=== PATIENT | male | born 1990 | race Caucasian/White ===

== ENCOUNTER 2019-07-09 01:13 | Inpatient (IN) ==
[~2019-07-09 01:13] MED LIST: NARCAN ONE; NS 1,000 ML ONE
[2019-07-09] MEDS ORDERED: NS 1,000 ML IV ONE ×4 (01:16→02:56)
[2019-07-09] MEDS ORDERED: NARCAN IV ONE (01:16)
[2019-07-09] MEDS ORDERED: QUELICIN ONE (01:36)
[2019-07-09] MEDS ORDERED: NS 1,000 ML ONE (01:36)
[2019-07-09] MEDS ORDERED: KETAMINE ONE (01:40)
[2019-07-09 01:41] LABS: UR AMPHETAMINES QUAL PRESUMPTIVE POSITIVE (NONE DETECT); UR BARBITUATES QUAL NONE DETECTED (NONE DETECT); UR BENZODIAZEPIN QUAL NONE DETECTED (NONE DETECT); UR CANNABINOIDS QUAL NONE DETECTED (NONE DETECT); UR COCAINE QUAL NONE DETECTED (NONE DETECT); UR METHADONE QUAL NONE DETECTED (NONE DETECT); UR METHAMPHETAMINE QUAL PRESUMPTIVE POSITIVE (NONE DETECT); UR OPIATES QUAL NONE DETECTED (NONE DETECT); UR OXYCODONE QUAL NONE DETECTED (NONE DETECT); UR PCP QUAL NONE DETECTED (NONE DETECT); UR PROPOXYPHENE QUAL NONE DETECTED (NONE DETECT); UR TCA QUAL NONE DETECTED (NONE DETECT)
[2019-07-09 01:43] LABS: BASO# 0.03 X1000 (0.0-0.2); BASO% 0.3 % (0.0-0.8); EOS# 0.15 X1000 (0.0-0.7); EOS% 1.7 % (0.0-10.0); HEMATOCRIT 46.3 % (42.0-52.0); HEMOGLOBIN 15.6 g/dL (14.0-18.0); IMM GRAN# 0.01 X1000 (0.0-0.04); IMM GRAN% 0.1 % (0.0-0.5); LYMPH# 4.76 X1000 (1.2-3.4); LYMPH% 54.9 % (20.5-51.1); MCH 30.4 PG (27-31); MCHC 33.7 g/dL (33-37); MCV 90.3 FL (81-99); MONO# 0.82 X1000 (0.11-0.59); MONO% 9.5 % (1.7-9.3); MPV 9.7 FL (7.4-10.4); NEUT% 33.5 % (42.2-75.2); PLT 290 X1000 (130-400); RBC 5.13 XMIL (4.7-6.1); RDW 12.5 % (11.5-14.5); WBC 8.67 X1000 (4.8-10.8)
[2019-07-09] MEDS ORDERED: DIPRIVAN 1% 1,000 MG/100 ML BOTTLE ONE (01:47)
[2019-07-09] MEDS ORDERED: AMIDATE IV ONE (01:53)
[2019-07-09] MEDS ORDERED: QUELICIN IV ONE (02:02)
[2019-07-09] MEDS: DIPRIVAN 1% 1,000 MG/100 ML BOTTLE IV SCH ×9 (02:04→22:19)
[2019-07-09 02:12] LABS: ACETAMINOPHEN < 1.2 ug/mL (10-30); AGAP 12; ALBUMIN 4.9 g/dL (3.5-5.0); ALKALINE PHOSPHATASE 77 U/L (32-122); BUN 8 mg/dL (8-22); CALCIUM 9.2 mg/dL (8.8-10.2); CHLORIDE 100 mmol/L (98-107); COSMO 276; ESTIMATED GFR > 60; GLUCOSE 103 mg/dL (70-104); GOT 16 U/L (10-34); GPT 7 U/L (10-44); MAGNESIUM 2.4 mg/dL (1.5-2.7); POTASSIUM 3.6 mmol/L (3.5-5.1); SALICYLATES < 3.00 mg/dL (3-10); SODIUM 139 mmol/L (136-145); TCO2 27 mmol/L (25-35); TOTAL PROTEIN 7.2 g/dL (6.3-8.3)
[2019-07-09] MEDS ORDERED: DIPRIVAN 1% IV ONE ×5 (02:18→06:10)
[2019-07-09] MEDS ORDERED: STERILE WATER INJ. ONE ×2 (02:19→06:03)
[2019-07-09] MEDS ORDERED: NORCURON ONE ×2 (02:19→06:03)
[2019-07-09] MEDS ORDERED: ZEMURON IV ONE (02:20)
[2019-07-09] MEDS ORDERED: NORCURON IV ONE ×2 (02:22→06:10)
[2019-07-09] MEDS ORDERED: NS IV SCH (02:30)
[2019-07-09] MEDS ORDERED: NORCURON IV SCH (02:30)
--- NOTE | 2019-07-09 02:36 | PROVIDER DOCUMENTATION ---
This chart was entered by Ute Serrano Scribe, acting as scribe for Francisco Barney MD. [id number] Abuse/Overdose - General Time Seen by Provider: 07/09/19 02:35 Source: RN/MD Unable to obtain history due to:: altered Allergies/Adverse Reactions: Allergies Allergy/AdvReac Type Severity Reaction Status Date / Time Unable to Assess Allergy Verified 07/09/19 02:31 Home Medications: Home Medication List Medication Instructions Recorded Confirmed Last Taken Type Unobtainable [Home Meds 07/09/19 07/09/19 Unknown History Unobtainable] - History of Present Illness-Drug/Alcohol Nature of Presenting Problem: male pt was visiting another pt in room when he became obtunded. the pt he was visiting sts pt took xanax unk amount. denies other drug use. pt responds to painful stimuli and strenal rub. gcs 7, no hypersecretion This episode of drinking or use began:: abrupt Severity: reports: moderate - Substance Abuse Substance Use: reports: benzodiazepines Review of Systems - Adult - REVIEW OF SYSTEMS - ADULT ROS:: unobtainable per condition Constitutional: reports: no symptoms reported. denies: chills, fever, night sweats Eyes: reports: no symptoms reported Ears, Nose, Mouth & Throat: reports: no symptoms reported Cardiovascular: reports: no symptoms reported Respiratory: reports: no symptoms reported Gastrointestinal: reports: no symptoms reported Genitourinary: reports: no symptoms reported Musculoskeletal: reports: no symptoms reported Integumentary: reports: no symptoms reported Neurological: reports: no symptoms reported Psychiatric: reports: see HPI, alcohol/drug dependence (xanax). denies: emotional problems, insomnia, suicidal thoughts Endocrine: reports: no symptoms reported Hematologic/Lymphatic: reports: no symptoms reported Allergic/Immunologic: reports: no symptoms reported All Other Systems: Reviewed and Negative Past History - Adult - PAST MEDICAL HISTORY-ADULT Review of Records: reports: Nursing Assessment Review, Medications Reviewed, Social history reviewed & non-contributory. Major Childhood Illnesses: reports: denies history Cardiovascular: reports: denies history Respiratory: reports: denies history Gastrointestinal: reports: denies history Obstetrical/Gynecological: reports: denies history Genitourinary: reports: denies history Musculoskeletal: reports: denies history Neurological: reports: denies history Endocrine/Immune: reports: denies history Other Conditions: reports: denies history - IMMUNIZATION STATUS Childhood Immunizations: See Nurse Assessment Flu Vaccine: See Nurse Assessment - FAMILY HISTORY Family History: reviewed, not pertinent - SOCIAL HISTORY Substance Use: benzodiazepines Physical Exam-General - PHYSICAL EXAM-ADULT Initial Vital Signs Reviewed: Yes - CONSTITUTIONAL General Appearance: no apparent distress, lethargic, slow to respond, obtunded, combative - EYES Eyes: other (pinpoint pupils). negative: PERRL/EOMI, pale conjunctivae, subconjunctival hemorrhage - HEAD, EARS, NOSE, MOUTH & THROAT HENMT: normocephalic/atraumatic, moist mucous membranes - NECK Neck: non-tender, full range of motion, supple, normal inspection - RESPIRATORY Respiratory: chest non-tender, lungs clear, normal breath sounds - CARDIOVASCULAR Cardiovascular: normal peripheral pulses, regular rate, rhythm - GASTROINTESTINAL (ABDOMEN) Abdominal Exam: normal bowel sounds, non tender, soft - MUSCULOSKELETAL Back Exam: normal inspection Extremity: non-tender, normal inspection Peripheral Pulses: radial (R): 2+, radial (L): 2+ - SKIN Integumentary: normal turgor, warm/dry, pallor. negative: normal color, diaphoresis, tenderness, warm - NEUROLOGIC Neurologic: other (unable to test due to pt condition) - PSYCHIATRIC Psych/Mental Status: disoriented x 3, other (pt obtunded) Progress - PLAN OF CARE/RESULTS Progress/Plan/Lab Results: Vital Signs - 8 hr 07/09/19 01:15 Pulse Rate 77 Respiratory Rate 15 Blood Pressure 93/68 O2 Sat by Pulse Oximetry 98 Laboratory Results - last 24 hr 07/09/19 07/09/19 07/09/19 01:17 01:17 01:17 WBC 8.67 RBC 5.13 Hgb 15.6 Hct 46.3 MCV 90.3 MCH 30.4 MCHC 33.7 RDW Std Deviation 12.5 Plt Count 290 MPV 9.7 Immature Gran % (Auto) 0.1 Neut % (Auto) 33.5 L Lymph % (Auto) 54.9 H Rich % (Auto) 9.5 H Eos % (Auto) 1.7 Baso % (Auto) 0.3 Immature Gran # (Auto) 0.01 Neut # (Auto) 2.90 Lymph # (Auto) 4.76 H Rich # (Auto) 0.82 H Eos # (Auto) 0.15 Baso # (Auto) 0.03 Sodium 139 Potassium 3.6 Chloride 100 Carbon Dioxide 27 Anion Gap 12 BUN 8 Creatinine 1.0 Estimated GFR/1.73 m2 > 60 BUN/Creatinine Ratio 8 Glucose 103 Calculated Osmolality 276 Calcium 9.2 Magnesium 2.4 Total Bilirubin 0.60 AST 16 ALT 7 L Alkaline Phosphatase 77 Total Protein 7.2 Albumin 4.9 Globulin 2.0 Albumin/Globulin Ratio 2.0 Salicylates < 3.00 L Urine Opiates Screen NONE DETECTED Ur Oxycodone Screen NONE DETECTED Urine Methadone Screen NONE DETECTED U Propoxyphene Qual NONE DETECTED Acetaminophen < 1.2 L Ur Barbituates Screen NONE DETECTED Ur Tricyclics Screen NONE DETECTED Ur Phencyclidine Scrn NONE DETECTED Ur Amphetamines Screen PRESUMPTIVE POSITIVE A U Methamphetamines Scrn PRESUMPTIVE POSITIVE A U Benzodiazepines Scrn NONE DETECTED Urine Cocaine Screen NONE DETECTED U Cannabinoids Screen NONE DETECTED Orders Category Date Time Status Butt Cath Insertion ORDERED Care 07/09/19 01:20 Active NG/OG/Feeding Tube Insertion ORDERED Care 07/09/19 02:27 Active Nursing- Obtain EKG ONCE Care 07/09/19 01:16 Active CHEST-PORTABLE [RAD] Stat Exams 07/09/19 01:16 Taken ACETAMINOPHEN [TDM] Stat Lab 07/09/19 01:17 Completed CBC WITH ELECTRONIC DIFF [HEME] Stat Lab 07/09/19 01:17 Completed CMP [COMPREHENSIVE METABOLIC PANEL] [CHEM] Stat Lab 07/09/19 01:17 Completed MAGNESIUM [CHEM] Stat Lab 07/09/19 01:17 Completed SALICYLATES [TDM] Stat Lab 07/09/19 01:17 Completed URINE DRUG SCREEN PL Stat Lab 07/09/19 01:17 Completed 0.9% Sodium Chloride Inj [Ns] 1,000 ml Med 07/09/19 01:36 Discontinued .ROUTE As directed 0.9% Sodium Chloride Inj [Ns] 1,000 ml Med 07/09/19 01:16 Discontinued IV 999 mls/hr 0.9% Sodium Chloride Inj [Ns] 1,000 ml Med 07/09/19 02:02 Active IV 999 mls/hr 0.9% Sodium Chloride Inj [Ns] 1,000 ml Med 07/09/19 02:16 Active IV 999 mls/hr 0.9% Sodium Chloride Inj [Ns] 80 ml Med 07/09/19 02:30 Discontinued Vecuronium [Norcuron] 20 mg IV As Directed mls/hr Etomidate [Amidate] Med 07/09/19 01:53 Discontinued 10 mg IV NOW ONE Ketamine Med 07/09/19 01:40 Discontinued 500 mg .ROUTE .STK-MED ONE Naloxone [Narcan] Med 07/09/19 01:16 Discontinued 2 mg IV NOW ONE Propofol [Diprivan 1%] Med 07/09/19 02:18 Discontinued 10 mg IV STAT ONE Propofol [Diprivan 1%] Med 07/09/19 02:18 Discontinued 30 mg IV STAT ONE Propofol [Diprivan 1%] Med 07/09/19 02:18 Discontinued 50 mg IV STAT ONE Propofol [Diprivan 1%] Med 07/09/19 01:47 Discontinued 1,000 mg in 100 ml .ROUTE As directed Propofol [Diprivan 1%] Med 07/09/19 02:30 Ordered 1,000 mg in 100 ml IV As Directed mls/hr Rocuronium [place] [Zemuron] Med 07/09/19 02:20 Discontinued 30 mg IV NOW ONE Succinylcholine [Quelicin] Med 07/09/19 01:36 Discontinued 200 mg .ROUTE .STK-MED ONE Succinylcholine [Quelicin] Med 07/09/19 02:02 Discontinued 80 mg IV NOW ONE Vecuronium [Norcuron] Med 07/09/19 02:19 Discontinued 10 mg .ROUTE .STK-MED ONE Vecuronium [Norcuron] Med 07/09/19 02:22 Discontinued 10 mg IV NOW ONE Water, Sterile Inj [Sterile Water Inj.] Med 07/09/19 02:19 Discontinued 10 ml .ROUTE .STK-MED ONE EKG [EKG] Stat Ther 07/09/19 01:16 Ordered Result Diagrams: 07/09/19 01:17 07/09/19 01:17 Procedures - INTUBATION Time of Intubation: 01:45 Mallampati Class: 1 Intubation Method: orotracheal Equipment: Glidescope Tube Size (cm): 7.5 Pretreated with 100% Oxygen?: Yes Breath Sounds after Intubation: equal ETT Primary Tube Confirmation: Capnometry CO2 Change, Direct Visualization, Chest Rise and Fall, Tube placement verified on XRAY Intubation Complications: no complications Procedure Comment: SEE RN NOTE FOR TIME OF INTUBATION Departure - Departure Date of Disposition Decision: 07/09/19 Time of Disposition Decision: 02:34 DIAGNOSIS: Overdose Disposition: ADMITTED INPATIENT 09 Certified Medical Emergency: Emergent Condition: Serious Referrals and Follow-Ups: None,PCP [Primary Care Provider] - - Critical Care Note This patient required my direct & personal management of CC.: Yes Total Time (mins): 36 Critical Care Statement: This patient required my direct personal management to treat or rule out processes, the absence of which, could potentiallly result in sudden, clinically significant life or limb threatening deterioration. Attestation - Physician/ SUSANA Attestation Patient care was provided by Advanced Practice Provider:: No The physician spent face to face time with patient:: Yes Advanced Practice Provider documentation review:: Supervising physician onsite and consulted in the evaluation and care of this patient. The physician did have a face to face encounter with the patient. This chart was documented by the indicated scribe, (Ute Serrano Scribe) and accurately reflects the services I performed and decisions made by me, Francisco Barney MD, as attested by the provider's signature.
[2019-07-09 03:01] LABS: BE -1.3 mmoll (-3.0-3.0); BLOOD TYPE ARTERIAL; HCO3-(ACT) 23.9 mmoll (20.0-26.0); METHB 1.3 % (0.0-1.5); O2(CT) 20.4 mL/dL (15.0-23.0); PCO2(98.6) 40 mmHg (35-45); PO2(98.6) 639 mmHg (60-100); SAMPLE BLOOD; SAO2 100.1 % (95.0-100.0); SRATE 16 BPM; THB 13.8 g/dL (11.5-17.4); TVOL 500 mL; pH(98.6) 7.38 (7.35-7.45)
[2019-07-09 03:02] LABS: ALLEN TEST YES; MODALITY VENTILATOR
--- NOTE | 2019-07-09 04:33 | EKG Report ---
Test Performed on : 07/09/2019 02:54:14 AM Test Reason : AMS Blood Pressure : / mmHG Vent. Rate : 082 BPM Atrial Rate : 082 BPM P-R Int : 178 ms QRS Dur : 104 ms QT Int : 404 ms P-R-T Axes : 073 087 073 degrees QTc Int : 472 ms Normal sinus rhythm. Incomplete right bundle branch block Borderline ECG No previous ECGs available Unconfirmed Result
--- NOTE | 2019-07-09 06:57 | Diag Imaging Result Doc PS360 ---
CHEST-PORTABLE - 07/09/2019 INDICATION: decreased o2 sat post intubation COMPARISON: 2:12 AM FINDINGS: There is an endotracheal tube and nasogastric tube in good position. The lungs are clear. Heart size is normal. No pneumothorax or pleural effusion. IMPRESSION: No acute disease or complication. Electronically signed by Keith Oliveira 07/09/2019 6:55 AM
--- NOTE | 2019-07-09 06:58 | Diag Imaging Result Doc PS360 ---
CHEST-PORTABLE - 07/09/2019 INDICATION: AMS COMPARISON: None FINDINGS: There is an endotracheal tube in good position at T3-T4. The lungs are clear. Heart size is normal. No pneumothorax or pleural effusion. IMPRESSION: No acute disease. Electronically signed by Keith Oliveira 07/09/2019 6:56 AM
--- NOTE | 2019-07-09 08:11 | Diag Imaging Result Doc PS360 ---
EXAM: CT HEAD W/O CONTRAST 07/09/2019 HISTORY: AMS TECHNIQUE: This exam was performed using automated exposure control, adjustment of mA or kV according to patient size, and/or use of iterative reconstruction technique. COMMENT: There is some beam hardening artifact. There is no evidence of intracranial mass effect, bleed, or abnormal extra-axial fluid collection. The calvarium is intact. There is a mucous retention cyst in the left maxillary sinus and some slight mucosal thickening is present in some of the ethmoid air cells. The mastoid air cells are clear. There is no evidence of fluid in the middle ear cavities. There is an endotracheal tube. There is fluid in the pharynx. IMPRESSION: No evidence of acute intracranial disease. Electronically signed by Ilya Oliveira 07/09/2019 8:08 AM
[2019-07-09] MEDS ORDERED: ZOFRAN IV PRN (09:25)
[2019-07-09] MEDS ORDERED: TYLENOL PO PRN (09:25)
[2019-07-09] MEDS: DUONEB (A & A) INH SCH ×3 (10:38→21:18)
[2019-07-09 10:49] LABS: ALLEN TEST YES; BE -1.5 mmoll (-3.0-3.0); BLOOD TYPE ARTERIAL; HCO3-(ACT) 23.7 mmoll (20.0-26.0); METHB 1.3 % (0.0-1.5); O2(CT) 19.3 mL/dL (15.0-23.0); O2HB 96.7 % (95.0-99.0); PCO2(98.6) 30 mmHg (35-45); PO2(98.6) 164 mmHg (60-100); SAMPLE BLOOD; SAO2 99.7 % (95.0-100.0); SRATE 16 BPM; TVOL 500 mL; pH(98.6) 7.46 (7.35-7.45)
[2019-07-09 10:50] LABS: MODALITY VENTILATOR
[2019-07-09] MEDS: LOVENOX SUBQ SCH (11:25)
--- NOTE | 2019-07-09 14:57 | HISTORY AND PHYSICAL ---
PRIMARY CARE PHYSICIAN: No primary care provider. Apparently, patient's mother is at the bedside, but we have been unable to get him registered with the correct name and date of . Reported date of is 1990, and the mother's reported patient name is Alton Shell. Apparently, Mr Shell is unresponsive and unable to provide his own information. CHIEF COMPLAINT: Unresponsive. HISTORY OF PRESENT ILLNESS: Mr. Alton Shell was here visiting a friend reported as being his girlfriend who was also obtunded at [facility]. He was found slumped over obtunded as well. There was reports of him taking Xanax, but it is really unclear. However, he was completely obtunded to the point he had to be intubated. They had attempted Narcan which was unsuccessful. Urine drug screen is positive for amphetamines and methamphetamines. He was transferred to [facility] ICU for advanced care. Currently, vitals are stable. Unable to obtain any other information. Chest x-ray is clear. Head CT is negative. PAST MEDICAL HISTORY: Third libertarian report from mother to nurse that there is no medical history. PAST SURGICAL HISTORY: No surgical history. SOCIAL HISTORY: Mother stated that he moves around from house to house. He is on drugs, but she was unclear of what all drugs he is on. She knows he smokes marijuana, and that he is a heavy drinker. FAMILY HISTORY: Unknown. ALLERGIES: Unknown. HOME MEDICATIONS: Unknown. REVIEW OF SYSTEMS: Unable to obtain. PHYSICAL EXAMINATION: VITAL SIGNS: Temperature 96.1 degrees, heart rate 62, respiratory rate 16, blood pressure 111/80, and O2 saturation 100% on mechanical ventilation. GENERAL: Mr. Shell is unable to provide any information. He is completely sedated on mechanical ventilation. HEENT: Atraumatic, normocephalic. Pupils are equal and reactive. Unable to perform extraocular movements. Mucous membranes are moist. NECK: Trachea midline. CARDIOVASCULAR: S1, S2. Regular rate and rhythm. No rubs, gallops, murmurs. No lower extremity edema. +2 dorsalis and radial pulses. Negative for JVD or carotid bruits. PULMONARY: Clear to auscultation. Bilateral breath sounds. No accessory muscle use or work of breathing noted. He is currently sedated on mechanical ventilation.. GI: He has an OG tube with low intermittent suction. Soft. Nondistended. EXTREMITIES: He is not moving his extremities due to being sedated on propofol. NEUROLOGIC: Again,, he is sedated. SKIN: Warm, dry, intact. LABORATORY DATA: White blood cells 8000, hemoglobin 15, hematocrit 46, and platelet count 290,000. ABGs on AC mode, rate 1600%, 500 total volume, PEEP of 5. ABGs show pH 7.38, pCO2 40, PO2 639, bicarb 23, base excess -1.3, saturation 96%, and lactate 0.8. Sodium 139, potassium 3.6, BUN 8, creatinine is 1.0, glucose 103, calcium 9.2, magnesium 2.4, bilirubin 0.60, AST 16, ALT 7, and albumin 4.9. Urine drug screen positive for amphetamines and methamphetamines. He has got less than 3 salicylates and less than 1.2 acetaminophen. IMAGING: Two chest x-rays, both negative for any acute findings. ET tube in place. Head CT also negative. EKG normal sinus rhythm with rate of 82, and QTc 472. ASSESSMENT/PLAN: 1. Overdose on amphetamines or methamphetamines requiring mechanical ventilation, currently on propofol. 2. Reported alcohol abuse. We will monitor for withdrawals, but currently on propofol. 3. Respiratory failure secondary to overdose, currently on mechanical ventilation. We will do nebs. Check ABGs. Consult Pulmonary. 4. Deep venous thrombosis prophylaxis. Lovenox. Dictated by DALLIN Bernstein for Gordon Mcginnis MD Addendum: Patient seen and examined by myself. Agree with DALLIN note. It reflects my assessment and plan. Patient is being admitted to hospital for toxic encephalopathy secondary to drug overdose. He has been intubated to protect airways. Will consult Pulmonary and will go from there. cc: DALLIN Bernstein MD [facility]PITALPeter
[2019-07-09 17:50] LABS: URINE SOURCE CATH
[2019-07-09 17:55] LABS: BILIRUBIN URINE NEGATIVE (NEGATIVE); BLOOD URINE MODERATE (NEGATIVE); COLOR YELLOW; GLUCOSE URINE NEGATIVE (NEGATIVE); KETONE URINE NEGATIVE (NEGATIVE); LEUKOCYTES URINE NEGATIVE (NEGATIVE); NITRITE URINE NEGATIVE (NEGATIVE); PROTEIN URINE NEGATIVE (NEGATIVE); SP GRAVITY URINE 1.011; TURBIDITY URINE CLEAR (CLEAR); UROBILINOGEN URINE NORMAL (NORMAL)
[2019-07-09 18:11] LABS: UR EPITHELIAL CELLS <10 /HPF (<10); URINE BACTERIA NEGATIVE /HPF; URINE RBC <10 /HPF (<10); URINE WBC <10 /HPF (<10)
[2019-07-09 18:19] LABS: URINE CRYSTALS NONE SEEN
--- NOTE | 2019-07-09 21:23 | CONSULTATION ---
DATE OF CONSULTATION: 07/09/2019 REQUESTING PROVIDER: DALLIN Bernstein. REASON FOR CONSULTATION: Respiratory failure, overdose. HISTORY OF PRESENT ILLNESS: The is One Velez who was found obtunded in a patient's room in [place]. He apparently overdosed. Drug screen showed positive to amphetamines and methamphetamines. He was lethargic, slow to respond, obtunded and combative. He later developed apneic episodes. He was intubated in the [place] ER and was transferred to ICU in our facility this morning. Per nursing notes, the patient's real name is Sumaya Dang. No medical information is available at this time. Initial lab works are nonsignificant. Patient currently is on Diprivan drip. FiO2 on the ventilator has been decreased from 100% to 30%, and he tolerates well. PAST MEDICAL HISTORY: Unknown. PAST SURGICAL HISTORY: Unknown. SOCIAL HISTORY: Unknown. FAMILY HISTORY: Unknown. ALLERGIES: Unable to be obtained. REVIEW OF SYSTEMS: Unable to be obtained. PHYSICAL EXAMINATION: Vital signs: Temperature 96.1 degrees, blood pressure 111/80, pulse 62, respiratory rate 16, oxygen saturation 100% on AC mechanical ventilator with spontaneous rate of 16, FiO2 30%, tidal volume 500 and PEEP 5. General: Appears slightly pale, well developed, no acute distress, intubated and sedated. No acute distress at this time. HEENT: No atraumatic, normocephalic. Trachea midline. ET tube in place. Mucosa pink and moist. Respiratory: Even and unlabored mechanical symmetrical excursion. Clear to auscultation bilaterally. Cardiovascular: Regular rate and rhythm. Gastrointestinal: Soft, nondistended, normoactive bowel sounds in all 4 quadrants. Extremities: No pedal edema. No cyanosis. No clubbing. Dorsalis pedis 2+ bilaterally. Neurologic: Sedated, unresponsive to any verbal or physical stimuli. LABORATORY DATA: White blood cell 8.67, hemoglobin 15.6, hematocrit 46.3, platelets 290,000. Sodium 139, potassium 3.6, chloride 100, carbon dioxide 27, BUN 8, creatinine 1.0, glucose 103. ABG: pH 7.46, pCO2 30, PO2 163, HCO3 23.7, base excess -1.5 and oxyhemoglobin 96.7. IMAGING DATA: Chest x-ray showed no acute disease or complication. ASSESSMENT: This is One Velez who was found obtunded in a patient's room in [place]. He apparently overdosed and eventually required intubation in [place] ER. He was transferred to ICU in our facility early this morning. 1. Acute hypoxic respiratory failure. 2. Altered mental status. 3. Drug overdose. Drug screen showed positive to amphetamines and methamphetamines. PLAN: 1. Continue AC mechanical ventilator, and we will start weaning trials when appropriate. 2. Continue bronchodilators. 3. Follow up with ABG, CBC, BMP and chest x-ray. 4. Further recommendations pending hospital course. Thank you for the courtesy of this consult. Dictated by DALLIN Anton for Jakob Diamond MD cc: DALLIN Anton MD [facility]
[2019-07-10] MEDS: DIPRIVAN 1% 1,000 MG/100 ML BOTTLE IV SCH ×3 (01:25→08:14)
[2019-07-10] MEDS: MORPHINE IV PRN ×2 (01:31→05:48)
[2019-07-10] MEDS: DUONEB (A & A) INH SCH ×4 (03:33→21:16)
[2019-07-10 04:50] LABS: ALLEN TEST YES; BE -2.1 mmoll (-3.0-3.0); BLOOD TYPE ARTERIAL; HCO3-(ACT) 23.3 mmoll (20.0-26.0); METHB 1.5 % (0.0-1.5); O2(CT) 19.3 mL/dL (15.0-23.0); O2HB 96.3 % (95.0-99.0); PCO2(98.6) 37 mmHg (35-45); PO2(98.6) 123 mmHg (60-100); SAMPLE BLOOD; SRATE 16 BPM; THB 14.1 g/dL (11.5-17.4); TVOL 500 mL; pH(98.6) 7.39 (7.35-7.45)
[2019-07-10 04:51] LABS: MODALITY VENTILATOR
[2019-07-10 05:20] LABS: BASO# 0.01 X1000 (0.0-0.2); BASO% 0.1 % (0.0-0.8); EOS# 0.07 X1000 (0.0-0.7); EOS% 0.7 % (0.0-10.0); HEMATOCRIT 42.9 % (42.0-52.0); LYMPH# 1.46 X1000 (1.2-3.4); LYMPH% 15.6 % (20.5-51.1); MCH 29.7 PG (27-31); MCHC 32.6 g/dL (33-37); MCV 90.9 FL (81-99); MONO# 0.58 X1000 (0.11-0.59); MONO% 6.2 % (1.7-9.3); MPV 10.3 FL (7.4-10.4); NEUT# 7.22 X1000 (1.4-6.5); NEUT% 77.4 % (42.2-75.2); PLT 213 X1000 (130-400); RBC 4.72 XMIL (4.7-6.1); RDW 12.5 % (11.5-14.5); WBC 9.34 X1000 (4.8-10.8)
[2019-07-10 05:59] LABS: AGAP 16; ALB/GLOB RATIO 1.9; ALBUMIN 3.5 g/dL (3.5-5.0); ALKALINE PHOSPHATASE 77 U/L (32-122); BUN 7 mg/dL (8-22); CALCIUM 8.6 mg/dL (8.8-10.2); CHLORIDE 108 mmol/L (98-107); COSMO 282; CREATININE 0.9 mg/dL (0.7-1.2); ESTIMATED GFR > 60; GLUCOSE 79 mg/dL (70-104); GOT 14 U/L (10-34); GPT 9 U/L (10-44); POTASSIUM 3.9 mmol/L (3.5-5.1); SODIUM 143 mmol/L (136-145); TCO2 19 mmol/L (25-35); TOTAL BILIRUBIN 0.46 mg/dL (0.20-1.00); TOTAL PROTEIN 5.3 g/dL (6.3-8.3)
--- NOTE | 2019-07-10 06:01 | Diag Imaging Result Doc PS360 ---
EXAM: CHEST-1 VIEW HISTORY: SOB TECHNIQUE: Single view COMPARISON: 07/09/2019 FINDINGS: No change in the endotracheal tube or nasogastric tube. The lungs are well expanded. There are no infiltrates. No cardiomegaly. No pleural effusions identified. IMPRESSION: No acute abnormality. Electronically signed by Ismael Schultz 07/10/2019 5:59 AM
--- NOTE | 2019-07-10 08:08 | EKG Report ---
Test Performed on : 07/10/2019 07:01:33 AM Test Reason : overdose Blood Pressure : / mmHG Vent. Rate : 115 BPM Atrial Rate : 115 BPM P-R Int : 144 ms QRS Dur : 094 ms QT Int : 322 ms P-R-T Axes : 083 076 084 degrees QTc Int : 445 ms Sinus tachycardia. Possible Left atrial enlargement Incomplete right bundle branch block Borderline ECG When compared with ECG of 09-JUL-2019 02:54, (Unconfirmed) No significant change was found Confirmed by Sandra NEWTON, Noah ([id number]) on 07/10/2019 8:55:04 AM
[2019-07-10] MEDS: HALDOL IV PRN (08:45)
[2019-07-10] MEDS ORDERED: PRECEDEX 200 MICROGM in NS 48 ML IV SCH (09:30)
[2019-07-10] MEDS: LOVENOX SUBQ SCH (09:39)
--- NOTE | 2019-07-10 12:39 | PROGRESS NOTE ---
DATE: 07/10/2019 SUBJECTIVE: Patient continues to be sedated and intubated. OBJECTIVE: Vital Signs: Temperature 97.1 degrees, heart rate 70, respiratory rate 16, blood pressure 112/76, and O2 saturation 100% on mechanical ventilator at FiO2 of 30%. General: This is a young male, lying in bed, in no acute distress. Cardiovascular: S1, S2 heard. No murmurs, gallops or rubs. Regular rate and rhythm. Respiratory: Coarse breath sounds noted in both pulmonary bases. Patient not using any accessory muscles or having work of breathing. Abdomen: Soft, apparently nontender to palpation. Bowel sounds present. No organomegaly. Extremities: No clubbing, cyanosis, or edema. Peripheral pulses present in both legs. Neurological: Patient is sedated and intubated. LABORATORY DATA: Reviewed. CBC is okay. ABG is okay. BMP is okay as well. ASSESSMENT AND PLAN: 1. Overdose of amphetamines and methamphetamine requiring mechanical ventilator. The patient continues to be on propofol. We tried to do a weaning trial this morning, but the patient failed, becoming very tachypneic and tachycardic, so at this point we will continue to monitor this patient closely. Continue to intubate this patient, and I will follow recommendations from Pulmonary. 2. Respiratory failure secondary to overdose. The patient's ABG shows good gas exchange. I think the main point now is to see that this patient is more alert and awake. We will continue to monitor. 3. Disposition. We will continue to monitor this patient closely in the intensive care unit. cc: Gordon Mcginnis MD
[2019-07-11] MEDS: DUONEB (A & A) INH SCH ×3 (03:28→22:07)
[2019-07-11 05:01] LABS: ALLEN TEST YES; BE -0.7 mmoll (-3.0-3.0); BLOOD TYPE ARTERIAL; HCO3-(ACT) 24.4 mmoll (20.0-26.0); METHB 1.2 % (0.0-1.5); O2(CT) 20.3 mL/dL (15.0-23.0); O2HB 97.2 % (95.0-99.0); PCO2(98.6) 36 mmHg (35-45); PO2(98.6) 170 mmHg (60-100); SAMPLE BLOOD; SAO2 103.2 % (95.0-100.0); THB 14.6 g/dL (11.5-17.4); pH(98.6) 7.42 (7.35-7.45)
[2019-07-11 05:03] LABS: MODALITY COOL AEROSOL
[2019-07-11 06:18] LABS: AGAP 17; ALB/GLOB RATIO 1.3; ALBUMIN 3.3 g/dL (3.5-5.0); ALKALINE PHOSPHATASE 80 U/L (32-122); BUN 8 mg/dL (8-22); CALCIUM 8.6 mg/dL (8.8-10.2); CHLORIDE 104 mmol/L (98-107); COSMO 281; CREATININE 0.9 mg/dL (0.7-1.2); ESTIMATED GFR > 60; GLUCOSE 61 mg/dL (70-104); GOT 15 U/L (10-34); GPT 7 U/L (10-44); MAGNESIUM 1.8 mg/dL (1.5-2.7); SODIUM 143 mmol/L (136-145); TCO2 22 mmol/L (25-35); TOTAL BILIRUBIN 0.73 mg/dL (0.20-1.00); TOTAL PROTEIN 5.8 g/dL (6.3-8.3)
--- NOTE | 2019-07-11 07:01 | Diag Imaging Result Doc PS360 ---
EXAM: CHEST-1 VIEW 07/11/2019 HISTORY: SOB TECHNIQUE: AP portable semiupright at 0456 COMMENT: There is some alveolar opacity in the right lower lobe which was not present on 07/10/2019. The heart size and pulmonary vascularity remain within normal limits. The endotracheal and NG tubes have been removed. IMPRESSION: Right lower lobe pneumonia. Electronically signed by Ilya Oliveira 07/11/2019 6:59 AM
[2019-07-11 07:03] LABS: BASO# 0.02 X1000 (0.0-0.2); BASO% 0.1 % (0.0-0.8); HEMOGLOBIN 14.1 g/dL (14.0-18.0); MCV 92.6 FL (81-99); RDW 12.7 % (11.5-14.5)
[2019-07-11 07:16] LABS: EOS# 0.03 X1000 (0.0-0.7); EOS% 0.2 % (0.0-10.0); HEMATOCRIT 43.5 % (42.0-52.0); IMM GRAN# 0.04 X1000 (0.0-0.04); IMM GRAN% 0.3 % (0.0-0.5); LYMPH# 1.03 X1000 (1.2-3.4); LYMPH% 7.3 % (20.5-51.1); MCHC 32.4 g/dL (33-37); MONO# 1.24 X1000 (0.11-0.59); MONO% 8.8 % (1.7-9.3); MPV 10.3 FL (7.4-10.4); NEUT# 11.77 X1000 (1.4-6.5); NEUT% 83.3 % (42.2-75.2); PLT 195 X1000 (130-400); WBC 14.13 X1000 (4.8-10.8)
--- NOTE | 2019-07-11 08:25 | PROVIDER PROGRESS NOTE ---
Progress Note Pulmonary: Extubated and tolerated. Well see PRN. Please reconsult if needed.
[2019-07-11] MEDS: LOVENOX SUBQ SCH (09:03)
[2019-07-11] MEDS: ZOSYN 3.375 GM in NS 50 ML IV SCH ×3 (09:03→20:15)
[2019-07-11] MEDS: HALDOL IV PRN (09:04)
--- NOTE | 2019-07-11 11:49 | PROGRESS NOTE ---
DATE: 07/11/2019 SUBJECTIVE: The patient extubated himself last afternoon. This morning, he is awake, alert, eating breakfast, and answered questions appropriately. He does not remember actually how he ended up being in the intensive care unit but he recognized that he abused substances. OBJECTIVE: Vital Signs: Temperature 98.4 degrees, heart rate 82, respiratory rate 17, blood pressure 111/62, O2 saturation 99% on 4 L nasal cannula. General Examination: This is a 28-year- old, male, lying in bed, in no acute distress. Cardiovascular Examination: S1 and S2 heard. No murmurs, gallops, or rubs. Regular rate and rhythm. Respiratory Examination: Minimal coarse breath sounds noted in both pulmonary bases. Patient is not using any accessory muscles or having work of breathing. Abdomen: Soft, nontender to palpation. Bowel sounds present. No organomegaly. Extremities: No clubbing, cyanosis, or edema. Peripheral pulses present in both legs. Neurological Examination: The patient is alert and oriented x3. Moves 4 extremities. Laboratory Data: White cell count is 14,000. ASSESSMENT/PLAN: 1. Overdose of amphetamines and methamphetamines, requiring mechanical ventilator. The patient had extubated himself yesterday. Now, he is completely fine, requiring 4 L of oxygen by nasal cannula. At this point, we will continue with intravenous fluids. 2. Right lower lobe pneumonia secondary to aspiration. Patient's white cell count started getting higher and he is requiring 4 L of oxygen by nasal cannula. We will start Zosyn on this patient. We will continue to monitor this patient closely. 3. Disposition. Patient is going to be transferred to a regular floor today. cc: Gordon Mcginnis MD
[2019-07-12] MEDS: DUONEB (A & A) INH SCH ×2 (03:18→11:56)
[2019-07-12] MEDS: ZOSYN 3.375 GM in NS 50 ML IV SCH ×2 (03:39→09:57)
[2019-07-12 03:42] LABS: ALLEN TEST YES; BE 2.2 mmoll (-3.0-3.0); BLOOD TYPE ARTERIAL; HCO3-(ACT) 26.6 mmoll (20.0-26.0); METHB 1.3 % (0.0-1.5); O2(CT) 18.6 mL/dL (15.0-23.0); O2HB 96.3 % (95.0-99.0); PCO2(98.6) 49 mmHg (35-45); PO2(98.6) 116 mmHg (60-100); SAMPLE BLOOD; THB 13.6 g/dL (11.5-17.4); pH(98.6) 7.37 (7.35-7.45)
[2019-07-12 03:43] LABS: MODALITY CANNULA
[2019-07-12 06:59] LABS: BASO# 0.01 X1000 (0.0-0.2); BASO% 0.1 % (0.0-0.8); EOS# 0.17 X1000 (0.0-0.7); EOS% 1.7 % (0.0-10.0); HEMATOCRIT 39.5 % (42.0-52.0); HEMOGLOBIN 13.1 g/dL (14.0-18.0); LYMPH# 1.36 X1000 (1.2-3.4); LYMPH% 13.5 % (20.5-51.1); MCHC 33.2 g/dL (33-37); MCV 93.4 FL (81-99); MONO# 1.08 X1000 (0.11-0.59); MONO% 10.7 % (1.7-9.3); MPV 10.3 FL (7.4-10.4); NEUT# 7.47 X1000 (1.4-6.5); PLT 190 X1000 (130-400); RBC 4.23 XMIL (4.7-6.1); RDW 12.6 % (11.5-14.5); WBC 10.09 X1000 (4.8-10.8)
[2019-07-12 07:03] LABS: AGAP 11; ALBUMIN 2.9 g/dL (3.5-5.0); BUN 5 mg/dL (8-22); CALCIUM 8.5 mg/dL (8.8-10.2); CHLORIDE 103 mmol/L (98-107); COSMO 279; CREATININE 0.8 mg/dL (0.7-1.2); ESTIMATED GFR > 60; GLUCOSE 112 mg/dL (70-104); GOT 11 U/L (10-34); GPT 5 U/L (10-44); MAGNESIUM 1.9 mg/dL (1.5-2.7); POTASSIUM 3.9 mmol/L (3.5-5.1); SODIUM 141 mmol/L (136-145); TCO2 27 mmol/L (25-35); TOTAL BILIRUBIN 0.31 mg/dL (0.20-1.00); TOTAL PROTEIN 5.9 g/dL (6.3-8.3)
[2019-07-12 07:16] LABS: ALKALINE PHOSPHATASE 73 U/L (32-122)
--- NOTE | 2019-07-12 07:41 | Diag Imaging Result Doc PS360 ---
EXAM: CHEST-1 VIEW 07/12/2019 HISTORY: SOB TECHNIQUE: AP portable at 0610 COMMENT: The opacity in the right lower lobe is somewhat less extensive but denser than on the previous study of 07/11/2019. No additional findings are present. IMPRESSION: Right lower lobe pneumonia. Electronically signed by Ilya Oliveira 07/12/2019 7:39 AM
[2019-07-12] MEDS: LOVENOX SUBQ SCH (09:57)
[2019-07-12 12:04] VITALS: BP 145/53
--- NOTE | 2019-07-13 18:20 | DISCHARGE SUMMARY ---
ADMISSION DATE: 07/09/2019 DISCHARGE DATE: 07/12/2019 DISCHARGE DIAGNOSES: 1. Overdose on amphetamines and methamphetamines. 2. Acute respiratory failure, on ventilator. Resolved. 3. Aspiration pneumonia. Improved. 4. Acute respiratory failure. Improved. CONSULTATIONS: Dr. Diamond from Pulmonary. PROCEDURES: 1. Head CT showed no evidence of acute intracranial disease. 2. Chest x-ray showed no acute disease or complication. 3. Chest x-ray from today, shows right lower lobe pneumonia. HOSPITAL COURSE: In brief, this is a young male who was found unresponsive. Apparently, he is a drug abuser. The patient was admitted to this hospital for protection of airway. He has been intubated. We started breathing treatments and we had consulted Pulmonary. Yesterday, he was able to extubate himself, and since then, he has been requiring 4 L of oxygen by nasal cannula, and the x-ray showed right lower lobe pneumonia. The patient was on oral antibiotics. Today, he was feeling fine, not requiring any oxygen supplementation. The patient is going to be seen in the office if needed in a couple of weeks. DISCHARGE PHYSICAL EXAMINATION: cardiovascular: S1, S2 heard. No murmurs, gallops, or rubs. Regular rate and rhythm. Respiratory: Clear bilaterally to auscultation. No work of breathing or using accessory muscles. Abdomen: Soft, nontender to palpation. Bowel sounds present. No organomegaly. Extremities: No clubbing, cyanosis, or edema. Peripheral pulses present in both legs. Neurological: The patient is alert and oriented x3. Moves 4 extremities. DISCHARGE DISPOSITION: Home to self-care. DISCHARGE MEDICATION: Augmentin 875 mg p.o. q.12 hours for 10 days. cc: Gordon Mcginnis MD
== END 2019-07-12 14:00 | disposition home or self-care (01) | DRG 917 ==
LOC: P.ED 01:13 → SUATTDRO 04:55 → EDBD 04:55 → ICU 04:55 → 4N 07-11 12:41
PROVIDERS: ATTEND Internal Medicine